=== PATIENT | female | born 2005 | race African-American/Black ===

== ENCOUNTER 2024-05-06 15:27 | Emergency (ER) | payer MEDICAID ==
[~2024-05-06] VITALS: Ht 165.1 cm; Wt 64.0 kg
[2024-05-06 15:31] VITALS: TEMP 98; O2SAT 100
[2024-05-06 16:07] LABS: BASOPHILS % 0.4 % (0.0-2.0); EOSINOPHILS % 0.4 % (0.0-5.0); HEMATOCRIT. 39.2 % (36.0-48.0); HEMOGLOBIN. 13.3 g/dL (12.0-16.0); MEAN CORPUSCULAR HEMOGLOBIN 29.8 pg (28.0-32.0); MEAN CORPUSCULAR HGB CONC 33.8 g/dL (31.0-37.0); MEAN CORPUSCULAR VOLUME 88.2 fL (81.0-99.0); MONOCYTES % 4.5 % (2.0-8.0); NEUTROPHILS % 73.7 % (40.0-76.0); PLATELET 269 x1000/uL (130-400); RED BLOOD CELL COUNT 4.45 mill/uL (4.2-5.4); RED CELL DISTRIBUTION WIDTH 14.6 % (11.6-14.6); WHITE BLOOD COUNT 8.8 x1000/uL (4.5-11.0)
[2024-05-06] MEDS: SODIUM CHLORIDE 0.9% 1,000 ML IV ONE (16:11)
[2024-05-06] MEDS: DICYCLOMINE HCL 10MG/ML 2ML VIAL IM ONE (16:11)
[2024-05-06] MEDS: FAMOTIDINE 20MG/2ML VIAL IV ONE (16:11)
[2024-05-06] MEDS: ONDANSETRON HCL 4MG/2ML INJ IV ONE (16:11)
[2024-05-06 16:16] LABS: CHLORIDE 106 mEq/L (98-107); SODIUM 136 mEq/L (136-145)
[2024-05-06 16:17] LABS: CARBON DIOXIDE 23 mEq/L (21-32)
[2024-05-06 16:18] LABS: CALCIUM 9.9 mg/dL (8.7-10.4)
[2024-05-06 16:22] LABS: CREATININE 0.7 mg/dL (0.6-1.0); GLUCOSE 101 mg/dL (70-105); HCG SCREEN NEGATIVE
[2024-05-06 16:23] LABS: UREA NITROGEN BLOOD 10 mg/dL (9-23)
[2024-05-06 16:24] LABS: ALANINE AMINOTRANSFERASE 11 IU/L (10-49); ALBUMIN 5.2 g/dL (3.2-4.8); ASPARTATE AMINOTRANSFERASE 17 IU/L (<34); BILIRUBIN DIRECT 0.1 mg/dL (<=3.0)
[2024-05-06 16:25] LABS: BILIRUBIN TOTAL 0.5 mg/dL (0.1-1.0); LACTIC ACID 2.1 mmol/L (0.4-2.0); PROTEIN TOTAL 7.9 g/dL (6.0-8.3)
[2024-05-06 16:34] LABS: ETHANOL BLOOD < 10 mg/dL (<10)
[2024-05-06 17:45] VITALS: BP 123/77; PULSE 77; RESP 16
[2024-05-06] MEDS: KETOROLAC 30MG/ML VIAL IV ONE (17:45)
[2024-05-06] MEDS: METOCLOPRAMIDE HCL 10MG/2ML VIAL IV ONE (17:45)
[2024-05-06 19:22] LABS: CLARITY URINE CLOUDY (CLEAR); COLOR URINE YELLOW (YELLOW); GLUCOSE URINE NEGATIVE (NEGATIVE); KETONES URINE 4+ (NEGATIVE); LEUKOCYTE ESTERASE URINE 2+ (NEGATIVE); NITRITE URINE NEGATIVE (NEGATIVE); OCCULT BLOOD URINE NEGATIVE (NEGATIVE); PROTEIN URINE 1+ (NEGATIVE); UROBILINOGEN URINE 0.2 E.U./dL (0.2-1.0)
[2024-05-06 19:43] LABS: RBC URINE 0-2 /hpf (0-2)
[2024-05-06 19:44] LABS: BACTERIA URINE TRACE; SQUAMOUS EPITHELIAL CELL URINE 2+ /lpf (RARE/1+)
[2024-05-06] MEDS ORDERED: SODIUM CHLORIDE 0.9% 1,000 ML IV ONE (20:30)
== END 2024-05-06 20:54 | disposition home or self-care (01) ==
LOC: ER 15:27
DX: R11.15 Cyclical vomiting syndrome unrelated to migraine (principal)
CPT/HCPCS: 80076; 80048; 81003; 80320; 84703; 83605; 83690; 85025; 36415; 96361; 96372; 96374; 96375; 99284; J0500; J3490; J1885; J2765; J2405; J7030; Z7610 ×3; G0480